=== PATIENT | female | born 1975 ===

== ENCOUNTER 2021-07-09 09:58 | Observation (INO) ==
[2021-07-09 13:53] LABS: Basophils % 0.3 % (0.0-0.8); Eosinophils # 0.1 10*3/uL (0.0-0.87); Eosinophils % 2.1 % (0.00-10.9); Hematocrit 39.1 VOL% (35.7-47.0); Hemoglobin 13.1 GM/DL (12.0-16.0); Immature Granulocytes % 0.6 %; Immature Granulocytes Absolute 0.04 #; Lymphocytes # 1.4 10*3/uL (1.4-4.0); Lymphocytes % 21.2 % (21.3-54.2); Mean Corpuscular HGB Conc 33.5 GM/DL (32-36); Mean Corpuscular Volume 85.7 FL (87-102); Mean Platelet Volume 8.6 FL (9.6-12.0); Monocytes % 10.6 % (1.7-12.7); Neutrophils % 65.2 % (38.7-73.9); Platelet Count 382 T/CUMM (130-400); Red Blood Count 4.56 MC/CUMM (3.8-5.5); Red Cell Distribution Width 12.7 % (9.3-17.3); White Blood Count 6.6 T/CUMM (4-12)
[2021-07-09 14:12] LABS: Albumin 3.7 G/DL (3.4-5.0); Bilirubin,Total 1.9 MG/DL (0.20-1.00); Calcium 8.9 MG/DL (8.5-10.1); Osmolality,Calculated 270.8 MOS/KG (273-304); Potassium 3.7 MMOL/L (3.5-5.1); Total Protein 8.3 G/DL (6.4-8.2)
[2021-07-09 15:11] LABS: Bilirubin,Urine Negative (Negative); Blood, Urine Negative (Negative); Glucose,Urine (UA) Negative (Negative); Ketones,Urine Negative (Negative); Mucus,Urine Occasional /LPF (Occasional); Nitrite,Urine Negative (Negative); Protein,Urine Negative; RBC,Urine 3 /HPF (0-4); Squamous Epithelial Cell,Urine Few /HPF (0-10); Urine Appearance CLEAR (Clear); Urine Color Amber (Yellow); Urine Specific Gravity 1.015 (1.001-1.035)
[2021-07-09] MEDS ORDERED: ACETAMINOPHEN 325 MG TABLET PO PRN (15:54)
[2021-07-09] MEDS ORDERED: HYDROmorphone 2 MG/1 ML VIAL IV PRN ×2 (15:54)
[2021-07-09] MEDS ORDERED: KETOROLAC 15 MG/1 ML VIAL IV PRN (15:54)
[2021-07-09] MEDS ORDERED: BISACODYL 5 MG TABLET PO PRN (15:54)
[2021-07-09] MEDS ORDERED: ONDANSETRON 4 MG/2 ML VIAL IV PRN (15:54)
[2021-07-09] MEDS ORDERED: KETOROLAC 30 MG/1 ML VIAL IV PRN (16:30)
[2021-07-09] MEDS: LACTATED RINGERS 1,000 ML IV SCH (18:14)
[2021-07-09] MEDS: PIPERACILLIN/TAZOBACTAM 3,375 MG in SODIUM CHLORIDE 0.9% 100 ML IV SCH (18:38)
[2021-07-10] MEDS: PIPERACILLIN/TAZOBACTAM 3,375 MG in SODIUM CHLORIDE 0.9% 100 ML IV SCH ×4 (00:23→23:36)
[2021-07-10 06:00] LABS: Basophils % 0.3 % (0.0-0.8); Eosinophils # 0.2 10*3/uL (0.0-0.87); Eosinophils % 4.2 % (0.00-10.9); Hematocrit 34.3 VOL% (35.7-47.0); Hemoglobin 11.5 GM/DL (12.0-16.0); Immature Granulocytes % 0.3 %; Immature Granulocytes Absolute 0.02 #; Lymphocytes # 1.6 10*3/uL (1.4-4.0); Lymphocytes % 27.5 % (21.3-54.2); Mean Corpuscular HGB Conc 33.5 GM/DL (32-36); Mean Corpuscular Volume 86.4 FL (87-102); Mean Platelet Volume 8.9 FL (9.6-12.0); Neutrophils % 53.7 % (38.7-73.9); Platelet Count 343 T/CUMM (130-400); Red Blood Count 3.97 MC/CUMM (3.8-5.5); Red Cell Distribution Width 12.7 % (9.3-17.3); White Blood Count 5.8 T/CUMM (4-12)
[2021-07-10 06:29] LABS: Albumin 3.1 G/DL (3.4-5.0); Bilirubin,Total 3.7 MG/DL (0.20-1.00); Calcium 8.4 MG/DL (8.5-10.1); Osmolality,Calculated 273.5 MOS/KG (273-304); Potassium 3.3 MMOL/L (3.5-5.1)
[2021-07-10] MEDS: LACTATED RINGERS 1,000 ML IV SCH ×3 (08:37→23:35)
[2021-07-10] MEDS ORDERED: INDOMETHACIN SUPP 50 MG SUPP RECTAL ONE (10:03)
[2021-07-10 10:30] LABS: PT Patient Result 11.3 SECS (10.5-12.0)
[2021-07-10] MEDS ORDERED: LACTATED RINGERS 1,000 ML IV SCH (10:30)
[2021-07-10] MEDS ORDERED: propofoL 200 MG/20 ML VIAL IV ONE (10:32)
[2021-07-10] MEDS ORDERED: ROCURONIUM 50 MG/5 ML VIAL IV ONE (10:32)
[2021-07-10] MEDS ORDERED: ONDANSETRON 4 MG/2 ML VIAL ONE (10:32)
[2021-07-10] MEDS ORDERED: SUCCINYLCHOLINE 200 MG/10 ML VIAL ONE (10:32)
[2021-07-10] MEDS ORDERED: LIDOCAINE 2% 5 ML VIAL ONE (10:32)
[2021-07-10] MEDS ORDERED: DEXAMETHASONE 4 MG/1 ML VIAL ONE (10:33)
[2021-07-10] MEDS ORDERED: SEVOFLURANE 1 UNIT/15 MINUTE INH ONE ×2 (10:33→12:24)
[2021-07-10] MEDS: PANTOPRAZOLE 40 MG TABLET PO SCH (11:18)
[2021-07-10] MEDS ORDERED: GLYCOPYRROLATE 0.4 MG/2 ML VIAL ONE ×2 (11:23→12:24)
[2021-07-10] MEDS ORDERED: fentaNYL 100 MCG/2 ML VIAL ONE (11:31)
[2021-07-10] MEDS ORDERED: NEOSTIGMINE 10 MG/10 ML VIAL ONE (12:22)
[2021-07-10] MEDS ORDERED: PHENYLEPHRINE 1 MG/10 ML SYRINGE IV ONE (12:24)
[2021-07-10] MEDS ORDERED: SUGAMMADEX 200 MG/2 ML VIAL IV ONE (12:40)
[2021-07-10] MEDS ORDERED: LORazepam 0.5 MG TABLET PO ONE (16:22)
[2021-07-11] MEDS: LACTATED RINGERS 1,000 ML IV SCH (03:57)
[2021-07-11 05:33] LABS: Basophils % 0.2 % (0.0-0.8); Eosinophils % 0.1 % (0.00-10.9); Hematocrit 35.8 VOL% (35.7-47.0); Hemoglobin 12.1 GM/DL (12.0-16.0); Immature Granulocytes % 0.7 %; Immature Granulocytes Absolute 0.08 #; Lymphocytes # 1.7 10*3/uL (1.4-4.0); Mean Corpuscular HGB Conc 33.8 GM/DL (32-36); Mean Corpuscular Volume 86.1 FL (87-102); Mean Platelet Volume 8.8 FL (9.6-12.0); Monocytes % 9.2 % (1.7-12.7); Neutrophils % 75.8 % (38.7-73.9); Platelet Count 368 T/CUMM (130-400); Red Blood Count 4.16 MC/CUMM (3.8-5.5); Red Cell Distribution Width 12.6 % (9.3-17.3); White Blood Count 12.1 T/CUMM (4-12)
[2021-07-11 05:59] LABS: Albumin 3.1 G/DL (3.4-5.0); Bilirubin,Total 1.8 MG/DL (0.20-1.00); Calcium 8.7 MG/DL (8.5-10.1); Osmolality,Calculated 276.4 MOS/KG (273-304); Potassium 3.8 MMOL/L (3.5-5.1); Total Protein 7.2 G/DL (6.4-8.2)
[2021-07-11] MEDS ORDERED: INDOCYANINE GREEN 25 MG VIAL IV ONE (06:00)
[2021-07-11] MEDS ORDERED: SUCCINYLCHOLINE 200 MG/10 ML VIAL ONE (06:40)
[2021-07-11] MEDS ORDERED: fentaNYL 100 MCG/2 ML VIAL ONE (06:40)
[2021-07-11] MEDS ORDERED: ONDANSETRON 4 MG/2 ML VIAL ONE (06:40)
[2021-07-11] MEDS ORDERED: LIDOCAINE 2% 5 ML VIAL ONE (06:40)
[2021-07-11] MEDS ORDERED: propofoL 200 MG/20 ML VIAL IV ONE (06:40)
[2021-07-11] MEDS ORDERED: SEVOFLURANE 1 UNIT/15 MINUTE INH ONE (06:40)
[2021-07-11] MEDS ORDERED: DEXAMETHASONE 4 MG/1 ML VIAL ONE (06:40)
[2021-07-11] MEDS ORDERED: ROCURONIUM 50 MG/5 ML VIAL IV ONE (06:40)
[2021-07-11] MEDS ORDERED: BUPIVACAINE MPF 0.25% 30 ML VIAL ONE (08:02)
[2021-07-11] MEDS ORDERED: TISSUE ADHESIVE 1 EACH APPLICATOR TOP ONE (08:02)
[2021-07-11] MEDS ORDERED: LIDOCAINE 1%/EPI INJ 20 ML VIAL ONE (08:02)
[2021-07-11] MEDS ORDERED: DEXMEDETOMIDINE 200 MCG/2 ML VIAL ONE (08:04)
[2021-07-11] MEDS ORDERED: MIDAZOLAM 2 MG/2 ML VIAL ONE (08:04)
[2021-07-11] MEDS ORDERED: NEOSTIGMINE 10 MG/10 ML VIAL ONE (09:08)
[2021-07-11] MEDS ORDERED: GLYCOPYRROLATE 0.4 MG/2 ML VIAL ONE (09:08)
[2021-07-11] MEDS ORDERED: LACTATED RINGERS 1,000 ML IV ONE (09:14)
[2021-07-11] MEDS: PIPERACILLIN/TAZOBACTAM 3,375 MG in SODIUM CHLORIDE 0.9% 100 ML IV SCH (09:32)
[2021-07-11] MEDS: PANTOPRAZOLE 40 MG TABLET PO SCH (10:16)
[2021-07-11 11:02] VITALS: BP 106/57
== END 2021-07-11 14:42 | disposition home or self-care (01) ==
LOC: N.ED 09:58 → N.3E 09:58
PROVIDERS: ADMIT Surgery; ATTEND Surgery
PROC: ERCPWSP (ICD-10-PCS; 2021-07-10 12:00)